=== PATIENT | female | born 1960 | race Hispanic/Latino ===

== ENCOUNTER 2017-04-06 04:53 | Emergency (ER) | payer BC ==
[2017-04-06 05:58] VITALS: BMI 33.4
[2017-04-06 06:04] VITALS: RESP 18; TEMP 98.3; O2SAT 99
[2017-04-06] MEDS ORDERED: Sodium Chloride 0.9% 2,000 ML IV STA (06:05)
--- NOTE | 2017-04-06 06:08 | ED PDOC ---
Arrival/HPI - General Time Seen by Provider: 04/06/17 05:56 Historian: Patient - History of Present Illness Narrative History of Present Illness (Text): 04/06/17 06:03 Bruna Baker is a 56 year old female, who past medical history includes Breast CA, depression, anxiety and mastectomy, presents to the Emergency department complaining of diarrhea and vomiting since 3 days. Patient states her symptoms initially began with diarrhea and vomiting but is currently only complaining of diarrhea. Patient informs she is having estimated 8 episodes of diarrhea every day containing "only water". Patient informs associated symptoms of nausea and generalized abdominal pain. Patient states taking gingerale, water and saltines for alleviation. Patient denies any blood in stool, fever, chills, chest pain, shortness of breath or any other complaints. Patient denies to social history of smoking and alcohol consumption. Time/Duration: < week Symptom Onset: Gradual Symptom Course: Unchanged Quality: Aching Activities at Onset: Light Context: Home Past Medical History - Provider Review Nursing Documentation Reviewed: Yes - Infectious Disease Hx of Infectious Diseases: None - Psychiatric Hx Anxiety: Yes Hx Depression: Yes Hx Substance Use: No - Surgical History Hx Mastectomy: Yes (torey 2011) - Anesthesia Hx Anesthesia Reactions: No Hx Malignant Hyperthermia: No Family/Social History - Physician Review Nursing Documentation Reviewed: Yes Family/Social History: Unknown Family HX Smoking Status: Never Smoked Hx Alcohol Use: No Hx Substance Use: No Allergies/Home Meds Allergies/Adverse Reactions: Allergies vicodine Adverse Reaction (Uncoded 04/06/17 05:54) SHORTNESS OF BREATH Home Medications: Home Meds Medication Instructions Recorded Confirmed Sertraline [Zoloft] 100 mg PO QAM 04/12/16 04/06/17 [place] 10 mg PO QID 04/12/16 04/06/17 hydrOXYzine Pamoate [Vistaril] 50 mg PO TID 04/12/16 04/06/17 Review of Systems - Physician Review All systems were reviewed & negative as marked: Yes - Review of Systems Constitutional: Normal. absent: Fevers Eyes: Normal ENT: Normal Respiratory: Normal. absent: SOB Cardiovascular: Normal. absent: Chest Pain Gastrointestinal: Abdominal Pain, Diarrhea, Nausea, Vomiting Genitourinary Female: Normal Musculoskeletal: Normal Skin: Normal Neurological: Normal Endocrine: Normal Hemo/Lymphatic: Normal Psychiatric: Depression (Past medical history ) Physical Exam Vital Signs Reviewed: Yes Vital Signs Temp Pulse Resp BP Pulse Ox 04/06/17 05:57 98.3 F 78 18 128/62 99 Temperature: Afebrile Blood Pressure: Normal Pulse: Regular Respiratory Rate: Normal Appearance: Positive for: Well-Appearing, Non-Toxic Pain Distress: None Mental Status: Positive for: Alert and Oriented X 3 - Systems Exam Head: Present: Atraumatic, Normocephalic Pupils: Present: PERRL Extroacular Muscles: Present: EOMI Conjunctiva: Present: Normal Mouth: Present: Dry Neck: Present: Normal Range of Motion Respiratory/Chest: Present: Clear to Auscultation, Good Air Exchange. No: Respiratory Distress, Accessory Muscle Use Cardiovascular: Present: Regular Rate and Rhythm, Normal S1, S2. No: Murmurs Abdomen: Present: Tenderness (minimally diffused abdominal tenderness. ), Normal Bowel Sounds. No: Distention, Peritoneal Signs, Guarding Back: Present: Normal Inspection Upper Extremity: Present: Normal Inspection. No: Cyanosis, Edema Lower Extremity: Present: Normal Inspection. No: Edema Neurological: Present: GCS=15, CN II-XII Intact, Speech Normal Skin: Present: Warm, Dry, Normal Color. No: Rashes Psychiatric: Present: Alert, Oriented x 3, Normal Insight, Normal Concentration , Lethargic Medical Decision Making ED Course and Treatment: 04/06/17 06:10 Impression: 56 year old female presents to the Emergency department complaining of vomiting, diarrhea and nausea. Differential Diagnosis included but are not limited to: viral gastroenteritis Plan: -- Labs -- IV Fluids -- Reassess and disposition Progress Notes: - Lab Interpretations Lab Results: 04/06/17 06:10 Lab Results 04/06/17 06:10: WBC 8.0 D, RBC 4.64, Hgb 13.3, Hct 41.3, MCV 89.0, MCH 28.7, MCHC 32.2, RDW 13.3, Plt Count 246, MPV 9.5, Gran % 68.7 H, Lymph % (Auto) 20.0 L, [place] % (Auto) 10.3 H, Eos % (Auto) 0.9 L, Baso % (Auto) 0.1, Gran # 5.47, Lymph # 1.6, [place] # 0.8 H, Eos # 0.1, Baso # 0.01 - Medication Orders Current Medication Orders: Sodium Chloride (Sodium Chloride 0.9%) 2,000 mls @ 999 mls/hr IV .Q2H1M STA Stop: 04/06/17 08:05 Last Admin: 04/06/17 06:22 Dose: 999 mls/hr eMAR Start Stop Document 04/06/17 06:22 WANDA (Rec: 04/06/17 06:22 WANDA [id number]) Intravenous Solution Start Date 04/06/17 Start Time 06:22 End Date 04/06/17 End time 08:22 Total Infusion Time 120 - Scribe Statement The provider has reviewed the documentation as recorded by the Scribe Gayatri Poe. All medical record entries made by the Scribe were at my direction and personally dictated by me. I have reviewed the chart and agree that the record accurately reflects my personal performance of the history, physical exam, medical decision making, and the department course for this patient. I have also personally directed, reviewed, and agree with the discharge instructions and disposition. Disposition/Present on Arrival - Present on Arrival Any Indicators Present on Arrival: No History of DVT/PE: No History of Uncontrolled Diabetes: No Urinary Catheter: No History Surgical Site Infection Following: None - Disposition Have Diagnosis and Disposition been Completed?: Yes Diagnosis: Gastroenteritis Disposition: HOME/ ROUTINE Disposition Time: 07:00 Patient Plan: Discharge Condition: STABLE
[2017-04-06 06:22] LABS: BASO # 0.01 K/mm3 (0.0-2.0); BASO % 0.1 % (0.0-3.0); EOS # 0.1 (0.0-0.7); EOS % 0.9 % (1.5-5.0); GRAN # 5.47 (1.4-6.5); GRAN % 68.7 % (50.0-68.0); HEMOGLOBIN 13.3 g/dL (12.0-16.0); LYMPH # 1.6 (1.2-3.4); MEAN CORPUSCULAR HEMOGLOBIN 28.7 pg (25.0-35.0); MEAN CORPUSCULAR HGB CONC 32.2 g/dl (31.0-37.0); MEAN PLATELET VOLUME 9.5 fl (7.0-11.0); MONO # 0.8 (0.1-0.6); MONO % 10.3 % (1.0-6.0); RBC 4.64 10^6/uL (3.5-6.1); RED CELL DISTRIBUTION WIDTH 13.3 % (11.5-14.5)
[2017-04-06 06:44] LABS: ALBUMIN 4.2 g/dL (3.0-4.8); ALT/SGPT 61 U/L (7-56); AST/SGOT 44 U/L (14-36); BLOOD UREA NITROGEN 17 mg/dL (7-21); GFR AFRICAN-AMERICAN > 60; GFR NON-AFRICAN AMERICAN > 60
[2017-04-06 07:19] VITALS: BP 129/68; PULSE 80
== END 2017-04-06 08:20 | disposition home or self-care (01) ==
LOC: ED 04:53
DX: K52.9 Noninfective gastroenteritis and colitis, unspecified (principal)
CPT/HCPCS: 80053; 85025; 96360; 96361; 99284; J7040